=== PATIENT | female | born 1985 | race Caucasian/White ===

== ENCOUNTER 2017-06-30 20:08 | Outpatient (CLI) | payer OTHER ==
--- NOTE | 2017-06-30 20:48 | DI ---
Exam: Right wrist three-view History: Post traumatic wrist pain Findings / impression: A marker designates the site of pain at the distal radius/ulna. No bony or a rticular abnormalities are seen. Negative exam.
== END 2017-06-30 20:09 | disposition home or self-care (01) ==
LOC: RAD 20:08
PROVIDERS: ATTEND Physician Assistant
DX: M25.531 Pain in right wrist (principal)

== ENCOUNTER 2018-03-25 18:01 | Emergency (ER) | payer MEDICAID, OTHER ==
[2018-03-25 18:16] VITALS: BP 143/95; TEMP 98; BMI 36.0
--- NOTE | 2018-03-25 18:31 | ED.PDOC ---
General ED Provider: Dr. GOPAL POWELL Chief Complaint: Arrhythmia Stated Complaint: Rapid heart rate. States she is currently being evaluated for sinus tachycardia by cardioligist at [facility] in [facility]. Has been dealing with rapid heart rate for over 2 years and had been seeing a provider at [facility]. Eventually had episodes of HR increasing in 140s so was referred. Had [place] who would only allow her to see Cardio in [facility]. Had dx testing done but no results. States scheduled to see prestidigitator later this month. States was not given therapy but advised to just watch it. Today felt chest pounding and came to ER. Family hx of Thyroid disease. Time Seen by Physician: 18:10 Mode of Arrival: Walk-In Information Source: Patient Exam Limitations: No limitations Primary Care Provider: VIKA PAULA Nursing and Triage Documentation Reviewed and Agree: Yes Does patient meet sepsis criteria?: No System Inflammatory Response Syndrome: Not Applicable Sepsis Protocol: For patient's 13 years and over: Temp is 96.8 and below OR 101 and greater Pulse >90 BPM Resp >20/minute Acutely Altered Mental Status Are patient's symptoms suggestive of a new infection, such as: -Pneumonia -Skin, Soft Tissue -Endocarditis -UTI -Bone, Joint Infection -Implantable Device -Acute Abdominal Infection -Wound Infection -Meningitis -Blood Stream Catheter Infection -Unknown Cardiovascular Complaint Exam - Palpitations Complaint/Exam Onset/Duration: Worsened todayt Symptoms Are: Still present Timing: Constant Initial Severity: Moderate Current Severity: Moderate Character: Reports: Fast, Pounding Aggravating: Reports: Exertion, Caffeine Alleviating: Reports: Rest (avoiding caffeine) Associated Signs and Symptoms: Reports: Lightheadedness, Dizziness, Shortness of breath. Denies: Syncope, Chest pain, Diaphoresis, Nausea, Vomiting Related Surgical History: Reports: None Cardiac Risk Factors: Reports: None Pulmonary Embolism Risk Factors: Reports: None Atrial Fibrillation Risk Factors: Reports: None Thyroid Exam: Enlarged, Tender Differential Diagnoses: Other (Sinus tachycardia. R/o Hyperthyroidism; Graves Ds ) Review of Systems - Review Of Systems Constitutional: Reports: Sweats Eyes: Reports: No symptoms Ears, Nose, Mouth, Throat: Reports: No symptoms Respiratory: Reports: No symptoms Cardiac: Reports: Palpitations GI: Reports: No symptoms : Reports: No symptoms Musculoskeletal: Reports: No symptoms Skin: Reports: No symptoms Neurological: Reports: No symptoms Endocrine: Reports: No symptoms Hematologic/Lymphatic: Reports: No symptoms All Other Systems: Reviewed and Negative Past Medical History - Past Medical History Previously Healthy: Yes Endocrine: Reports: None Cardiovascular: Reports: None, Other (tachycardia) Respiratory: Reports: None Hematological: Reports: None Gastrointestinal: Reports: None Genitourinary: Reports: None Neuro/Psych: Reports: None Musculoskeletal: Reports: None Cancer: Reports: None Last Menstrual Period: on - Surgical History General Surgical History: Reports: None - Family History Family History: Reports: None - Social History Smoking Status: Never smoker Hx Substance Use: No Alcohol Screening: Occasionally - Immunizations Tetanus Shot up to Date: No Physical Exam - Physical Exam Appearance: Obese Ill-appearing: None Pain Distress: None Eyes: PAUL, EOMI, Conjunctiva clear ENT: Ears normal, Nose normal, Oropharynx normal Neck: Supple (thryoid enlargement) Respiratory: Airway patent, Breath sounds clear, Breath sounds equal, Respirations nonlabored Cardiovascular: Tachycardia GI/: Soft, Nontender, No masses, Bowel sounds normal, No Organomegaly Musculoskeletal: Normal strength, ROM intact, No edema, No calf tenderness Skin: Warm, Dry, Normal color Neurological: Sensation intact, Motor intact, Reflexes intact, Cranial nerves intact, Alert, Oriented Psychiatric: Affect appropriate, Mood appropriate Interpretation - Brooch And Bracelet Maker Rate: Tachy Critical Care Note - Critical Care Note Total Time (mins): 60 Course - Course Hematology/Chemistry: 03/25/18 18:43 03/25/18 18:43 Orders, Labs, Meds: Lab Review 03/25/18 03/25/18 03/25/18 18:43 18:43 18:43 WBC 9.77 RBC 5.33 Hgb 13.2 Hct 40.6 MCV 76.2 L MCH 24.8 L MCHC 32.5 RDW Coeff of Franchesca 13.0 Plt Count 330 Immature Gran % (Auto) 0.3 Neut % (Auto) 61.8 Lymph % (Auto) 30.7 [place] % (Auto) 5.0 Eos % (Auto) 1.8 Baso % (Auto) 0.4 Immature Gran # (Auto) 0.0 Neut # (Auto) 6.0 Lymph # (Auto) 3.0 [place] # (Auto) 0.5 Eos # (Auto) 0.2 Baso # (Auto) 0.0 D-Dimer (Manual) 198.51 Sodium 136.6 Potassium 3.99 Chloride 102.5 Carbon Dioxide 27.6 Anion Gap 10.49 BUN 16.8 Creatinine 0.62 Estimated GFR (MDRD) 113.00 BUN/Creatinine Ratio 27.09 Glucose 110.9 H Calcium 9.56 Total Bilirubin 0.15 L AST 25.9 ALT 56.2 H Alkaline Phosphatase 69.4 Total Protein 7.89 Albumin 4.49 Globulin 3.40 Albumin/Globulin Ratio 1.32 TSH < 0.015 L Thyroxine (T4) Urine Color Urine Clarity Urine pH Ur Specific Rand Urine Protein Urine Glucose (UA) Urine Ketones Urine Blood Urine Nitrite Urine Bilirubin Urine Urobilinogen Ur Leukocyte Esterase Urine Microscopic RBC Ur Squamous Epith Cells Urine Bacteria Urine Mucus Urine Opiates Screen Ur Oxycodone Screen Urine Methadone Screen Ur Propoxyphene Screen Ur Barbiturates Screen U Tricyclic Antidepress Ur Phencyclidine Scrn Ur Amphetamine Screen U Methamphetamines Scrn U Benzodiazepines Scrn Urine Cocaine Screen U Cannabinoids Screen 03/25/18 03/25/18 03/25/18 18:43 19:29 19:29 WBC RBC Hgb Hct MCV MCH MCHC RDW Coeff of Franchesca Plt Count Immature Gran % (Auto) Neut % (Auto) Lymph % (Auto) [place] % (Auto) Eos % (Auto) Baso % (Auto) Immature Gran # (Auto) Neut # (Auto) Lymph # (Auto) [place] # (Auto) Eos # (Auto) Baso # (Auto) D-Dimer (Manual) Sodium Potassium Chloride Carbon Dioxide Anion Gap BUN Creatinine Estimated GFR (MDRD) BUN/Creatinine Ratio Glucose Calcium Total Bilirubin AST ALT Alkaline Phosphatase Total Protein Albumin Globulin Albumin/Globulin Ratio TSH Thyroxine (T4) 13.7 H Urine Color Yellow Urine Clarity Clear Urine pH 5.5 Ur Specific Rand >=1.030 Urine Protein Negative Urine Glucose (UA) Negative Urine Ketones Negative Urine Blood 1+ Urine Nitrite Negative Urine Bilirubin Negative Urine Urobilinogen 0.2 Ur Leukocyte Esterase Negative Urine Microscopic RBC 2-5 Ur Squamous Epith Cells 2-5 Urine Bacteria Trace Urine Mucus 1+ Urine Opiates Screen Negative Ur Oxycodone Screen Negative Urine Methadone Screen Negative Ur Propoxyphene Screen Negative Ur Barbiturates Screen Negative U Tricyclic Antidepress Negative Ur Phencyclidine Scrn Negative Ur Amphetamine Screen Negative U Methamphetamines Scrn Negative U Benzodiazepines Scrn Negative Urine Cocaine Screen Negative U Cannabinoids Screen Negative Orders Category Date Time Status EKG-(ED ONLY) Stat CARDIO 03/25/18 18:26 Completed CBC W/ AUTO DIFF Stat LAB 03/25/18 18:43 Completed CMP [COMPREHENSIVE METABOLIC PANEL] Stat LAB 03/25/18 18:43 Completed D-DIMER Stat LAB 03/25/18 18:43 Completed T4 (THYROXINE) Stat LAB 03/25/18 18:43 Completed THYROID STIMULATING HORMONE Stat LAB 03/25/18 18:43 Completed UA [URINALYSIS C & S IF INDICATED] Stat LAB 03/25/18 19:29 Completed URINE DRUG SCREEN (RAPID FOR ED) [DRUG SCREEN, URINE, LAB 03/25/18 19:29 Completed RAPID] Stat Propranolol HCl [Inderal] MEDS 03/25/18 19:44 Discontinued 20 mg PO ONCE STA Medications Discontinued Medications Generic Name Dose Route Start Last Admin Trade Name Freq PRN Reason Stop Dose Admin Propranolol HCl 20 mg 03/25/18 19:44 03/25/18 19:52 Inderal PO 03/25/18 19:45 20 mg ONCE STA Administration Vital Signs: Temp Pulse Resp BP Pulse Ox 03/25/18 18:02 98 F 142 H 16 143/95 H 99 NNEKA Risk Score NNEKA Risk Score: Risk Score Odds of by 30D 0 0.1 (0.1-0.2) 1 0.3 (0.2-0.3) 2 0.4 (0.3-0.5) 3 0.7 (0.6-0.9) 4 1.2 (1.0-1.5) 5 2.2 (1.9-2.6) 6 3.0 (2.5-3.6) 7 4.8 (3.8-6.1) Departure - Departure Time of Disposition: 20:00 Disposition: HOME SELF-CARE Discharge Problem: Sinus tachycardia, Low thyroid stimulating hormone (TSH) level, Hyperthyroidism Instructions: Hyperthyroidism (ED), Tachycardia (ED) Condition: Fair Pt referred to PMD for follow-up: Yes IPMP verified?: No Additional Instructions: Avoid cardiac stimulants (caffeine etc) Take meds as directed See PCP and Staff Nuclear Weapons Officer Prescriptions: Propranolol HCl 20 mg PO TID #30 tablet Allergies/Adverse Reactions: Allergies cinnamon Adverse Reaction (Verified 03/25/18 18:09) Sulfa (Sulfonamide Antibiotics) Adverse Reaction (Verified 03/25/18 18:09) Home Medications: Ambulatory Orders Propranolol HCl 20 mg PO TID #30 tablet 03/25/18 Disposition Discussed With: Patient, Family, Other (Dr Swan) Additional Information: Reviewed case with Dr Swan who agrees to follow patient in department after propranolol administered /through discharge later this evening Additional Comments Additional Comments: 03/27/2018. 0747 hrs. Reviewed additional test from her ER visit on 03/25/18. T4 was elevated to 13.7. Called patient's phone # but could not leave message. Called mother's phone and ask her to contact her daughter Hollie and ask her to call ER for Test results. RN called [facility] left message for provider. Pt called back and advised of findings/going to make apt. Stated she would text her daughter.
[2018-03-25] MEDS: INDERAL PO STA (19:52)
== END 2018-03-25 20:38 | disposition home or self-care (01) ==
LOC: ED 18:01
DX: R00.0 Tachycardia, unspecified (principal); R94.6 Abnormal results of thyroid function studies; E05.90 Thyrotoxicosis, unspecified without thyrotoxic crisis or storm
CPT/HCPCS: 36415; 80053; 80306; 81001; 84436; 84443; 85025; 85379; 93005; 93010; 99284